=== PATIENT | female | born 2005 | race African-American/Black ===

== ENCOUNTER 2023-05-02 23:15 | Emergency (ER) | payer SELFPAY ==
[~2023-05-02] VITALS: Ht 165.1 cm; Wt 68.7 kg
[2023-05-02 23:56] VITALS: BP 134/99; PULSE 77; RESP 18; TEMP 98.2; O2SAT 100
[2023-05-03] MEDS ORDERED: AMOX-494 MT (00:58)
[2023-05-03] MEDS ORDERED: HYDR-4001 MT (00:58)
== END 2023-05-03 01:14 | disposition home or self-care (01) ==
LOC: ER 23:15
DX: K08.89 Other specified disorders of teeth and supporting structures (principal); Z88.6 Allergy status to analgesic agent; Z91.013 Allergy to seafood
CPT/HCPCS: 99283